=== PATIENT | male | born 1990 | race Hispanic/Latino ===

== ENCOUNTER 2021-11-16 19:18 | Emergency (ER) | payer SELFPAY ==
[2021-11-16] MEDS ORDERED: AMOXicillin 250 MG CAP ONE (20:41)
[2021-11-16] MEDS ORDERED: Ibuprofen 800 MG TAB ONE (20:41)
== END 2021-11-16 20:43 | disposition home or self-care (01) ==
LOC: BURERS 19:18
DX: K02.9 Dental caries, unspecified (principal); F17.210 Nicotine dependence, cigarettes, uncomplicated
CPT/HCPCS: 99282